=== PATIENT | female | born 1990 | race Caucasian/White ===

== ENCOUNTER 2017-09-21 04:15 | Inpatient (IN) ==
[2017-09-21] MEDS ORDERED: 0.9 % Sodium Chloride 1,000 ML IVC ONE (04:31)
[2017-09-21] MEDS ORDERED: Ondansetron 4 MG/2 ML VIAL IVP ONE (04:31)
[2017-09-21] MEDS ORDERED: *HR* LORazepam 2 MG/ML VIAL IVP ONE ×2 (04:32→05:06)
[2017-09-21 04:39] LABS: Bilirubin,Urine Negative (Negative); Blood,Urine Moderate (Negative); Clarity,Urine Cloudy (Clear); Color,Urine Yellow (Yellow); Glucose,Urine (UA) Normal (Normal); Ketones,Urine Negative (Negative); Leukocyte Esterase,Urine Negative (Negative); Nitrite,Urine Negative (Negative); PH,Urine 6.5 pH Units (5.0-8.0); Protein,Urine 30 mg/dL (Neg-Trace); Specific Gravity,Urine 1.015 (1.010-1.025); Urobilinogen,Urine Normal (Normal)
[2017-09-21 04:40] LABS: Basophils % 0.4 %; Eosinophils # 0.3 K/mcL (0.0-0.6); Eosinophils % 3.4 %; Hematocrit 38.6 % (35.3-44.9); Hemoglobin 13.1 g/dL (11.5-15.4); Immature Granulocytes % 0.1 % (0-4); Lymphocytes # 4.1 K/mcL (0.6-4.6); Lymphocytes % 49.3 %; Mean Corpuscular HGB Conc 33.9 g/dL (31.6-35.5); Mean Corpuscular Hemoglobin 29.9 pg (28.0-33.3); Mean Corpuscular Volume 88.1 fL (83.0-100.0); Mean Platelet Volume 8.8 fL (9.4-12.4); Monocytes # 0.6 K/mcL (0.0-1.3); Monocytes % 7.3 %; Neutrophils # 3.3 K/mcL (1.6-8.9); Platelet Count 239 K/mcL (140-400); Red Blood Count 4.38 M/mcL (3.82-4.97); Red Cell Distribution Width 11.9 % (11.5-14.5); Segmented Neutrophils % 39.5 %
[2017-09-21 04:42] LABS: Bacteria,Urine Moderate per hpf (None-Few); Hyaline Casts,Urine None Seen per lpf (None-Few); Squamous Epithelial Cell,Urine Many per lpf (None-Few)
[2017-09-21 04:50] LABS: Ethanol 394 mg/dL (0-10)
--- NOTE | 2017-09-21 05:00 | Emergency Department Note ---
Disposition Clinical Impression: Alcohol abuse Nausea & vomiting Qualifiers: Vomiting type: unspecified Vomiting Intractability: unspecified Qualified Code( s): R11.2 - Nausea with vomiting, unspecified Disposition: Admitted As Inpatient Condition: Fair Time of Disposition: 06:06 Nausea/Vomiting/Diarrhea HPI - General Chief complaint: ED Nausea/Vomiting/Diarrhea Stated complaint: N/V Time Seen by Provider: 09/21/17 04:29 Source: patient, EMS Limitations: no limitations Nursing Notes Reviewed: Yes Vital Signs Reviewed: Yes - History of Present Illness HPI Narrative: 19-year-old female presented to the emergency department complaining of nausea and vomiting she is a chronic alcoholic since she has been drinking for approximately 2 years she went through detox approximately 2 months ago was clean for 1 month and then one month ago decided to start drinking. Says she has been drinking every day where she does at least 1 pint of vodka. Per day. She said that she does want to get clean again. Her last drink was approximately 4 hours prior to arrival she said she is scared she is to start going through withdrawals. She does have extreme anxiety. She has been vomiting for the last 2 days she has been vomiting blood that is about 2 ounces per time. She is complaining of nausea and vomiting. She is not complaining of any abdominal pain. Patient is having no other symptoms including headache, blurry vision, neck pain, fevers or chills, chest pain, shortness of breath, back pain, abdominal pain, changes in bowel movements or pain with urination or generalized weakness. Patient does have suicidal ideations 2 days ago where she did try and slow her wrists. There is no active bleeding at this time per just having homicidal ideations. - Related Data Previous Rx's Medication Instructions Recorded Ibuprofen [Motrin] 600 mg PO Q6HR PRN #40 tab 01/25/16 Oxycodone HCl/Acetaminophen 1 each PO Q4H #20 tablet 01/25/16 [Percocet 5-325 mg Tablet] LORazepam [Ativan] 1 - 2 mg PO QID #14 tablet 10/29/16 Ondansetron ODT [Zofran ODT] 4 mg SL Q8HR #14 tab.rapdis 10/29/16 Allergies Allergy/AdvReac Type Severity Reaction Status Date / Time No Known Allergies Allergy Verified 09/21/17 04:45 Review of Systems: 10 point review of systems done and negative unless otherwise stated in history of present illness. All systems ED: reviewed and negative except as stated. Review of Systems: As Per HPI Past Medical History - Past Medical History Attestation: Yes The following information was validated with the patient. Source: patient Medical history: Reports: no medical history Surgical history: Reports: no surgical history Psychiatric history: Reports: anxiety, depression [employer] history: Reports: other - Social History Smoking Status: Current every day smoker Smokeless Tobacco Status: No Alcohol use: Reports: heavy, recent Drug use: Reports: none Physical Exam - General Limitations: no limitations General appearance: alert - Head Head exam: atraumatic, normocephalic, normal inspection - Eye Eye exam: Present: normal appearance, PERRL, EOMI - ENT ENT exam: normal exam, normal oropharynx, mucous membranes moist - Neck Neck exam: Present: normal inspection, full ROM, trachea midline - Chest Chest inspection: Present: normal inspection, symmetric chest wall rise - Respiratory Respiratory exam: Present: normal lung sounds bilaterally - Cardiovascular Cardiovascular exam: Present: regular rate, normal rhythm, normal heart sounds - Abdominal Exam Abdominal exam: Present: soft, Non-Tender. Absent: tenderness, distention, guarding, rebound, rigidity - Extremities Exam Extremities exam: Present: normal inspection, full ROM. Absent: tenderness, pedal edema - Expanded Upper Extremity Exam Forearm/Wrist exam: Present: normal inspection, full ROM, other (Noticeable slits on her left wrist where she did try to cut herself. No current active bleeding.) - Expanded Lower Extremity Exam Hip/Pelvis exam: Present: normal inspection, full ROM Neurovascular/Tendon exam: Absent: motor deficit, sensory deficit, tendon deficit - Back Exam Back exam: Present: normal inspection, full ROM. Absent: tenderness, CVA tenderness (R), CVA tenderness (L) - Neurological Exam Neurological exam: Present: alert, oriented X3 - Skin Skin exam: Present: warm, dry, intact, normal color Course Course Narrative: 27-year-old female presenting to the emergency department complaining of a call withdrawals. She also had suicidal ideations so we will do the psych medical clearance as well. She last drink 4 hours ago she she is probably not withdrawing at this time. But she is very anxious we will give her Ativan she will see hydrated we will give her IV fluids as well as Zofran for her nausea. We will order basic labs including CBC, CMP, lipase, urine, urine , urine drug screen, acetaminophen, salicylates, ethanol. Most likely disposition will be admission with a psych consultation Vital Signs Temperature 98.1 F 09/21/17 04:17 Pulse Rate 110 09/21/17 04:17 Respiratory Rate 16 09/21/17 04:17 Blood Pressure 146/101 09/21/17 04:17 O2 Sat by Pulse Oximetry 99 09/21/17 04:17 Temperature 98.0 F 09/21/17 06:09 Pulse Rate 102 09/21/17 06:09 Respiratory Rate 19 09/21/17 06:09 Blood Pressure 123/70 09/21/17 06:09 O2 Sat by Pulse Oximetry 99 09/21/17 06:09 Oxygen Delivery Oxygen Delivery Room Air Nausea/Vomiting/Diarrhea - MDM Narrative Medical decision making narrative: 27-year-old male presented to the emergency department with nausea vomiting she is a chronic alcoholic history. Last drink was 4 hours prior to her arrival. We did give her a full milligram of Ativan. This did help with some of her anxiety. Did give her 1 L of fluids. Labs did show that she had an alcohol level of nearly 400 or labs came back normal. Urinalysis also was normal and was a dirty catch most likely not urinary tract infection. We will will not treat at this time. Patient does want to stop using alcohol she is on a weight loss in a detox center up in [place] but says she cannot make it until then. She had. Sodium of bloody vomit. Did a chest x-ray had no acute abdomen malaise. Her hemoglobin was normal. This was likely just Natalya-López tears. Patient also probably has chronic gastric ulcers. Due patient most likely having to go through withdrawals admission was necessary for this I admitted to the hospitalist service talk to Dr. Martinez who agreed to admit the patient to their service. He did ask that we put the patient in telemetry also because she had the suicidal ideations and attempts he recommended suicide precautions as well as having a sitter these were all put in. I did put in the [facility] protocol. Patient is admitted in stable condition. Psych consultation was put in for when patient miranda up Chest X-Ray 09/21/17 04:30 IMPRESSION: Negative portable chest. D/ / Luis Faulkner MD / Luis Faulkner MD Interpreting Provider: Luis Faulkner MD - Medical Records Medical records reviewed: Yes I reviewed the patient's medical records. - Lab Data Lab results reviewed: Yes I reviewed the patient's lab results. Result diagrams: 09/21/17 04:28 09/21/17 04:28 Lab Results 09/21/17 09/21/17 09/21/17 Range/Units 04:27 04:27 04:27 WBC (4.3-11.1) K/mcL RBC (3.82-4.97) M/mcL Hgb (11.5-15.4) g/dL Hct (35.3-44.9) % MCV (83.0-100.0) fL MCH (28.0-33.3) pg MCHC (31.6-35.5) g/dL RDW (11.5-14.5) % Plt Count (140-400) K/mcL MPV (9.4-12.4) fL Immature Gran % (0-4) % Seg Neutrophils % % Lymphocytes % % Monocytes % % Eosinophils % % Basophils % % Neutrophils # (1.6-8.9) K/mcL Lymphocytes # (0.6-4.6) K/mcL Monocytes # (0.0-1.3) K/mcL Eosinophils # (0.0-0.6) K/mcL Basophils # (0.0-0.2) K/mcL Sodium (136-145) mEq/L Potassium (3.5-5.1) mEq/L Chloride (98-107) mEq/L Carbon Dioxide (23-29) mEq/L BUN (6-20) mg/dL Creatinine (0.60-1.20) mg/dL Est GFR ( Amer) (> 60) Est GFR (Non-Af Amer) (> 60) BUN/Creatinine Ratio (6-26) Glucose (70-105) mg/dL Calculated Osmolality (280-300) Calcium (8.6-10.3) mg/dL Total Bilirubin (0.3-1.0) mg/dL AST (13-39) Units/L ALT (7-52) Units/L Alkaline Phosphatase (34-104) Units/L Serum Total Protein (6.4-8.9) g/dL Albumin (3.5-5.7) g/dL Globulin (2.4-3.5) g/dL Albumin/Globulin Ratio (1.1-2.2) Lipase (11-82) Units/L Urine Color Yellow (Yellow) Urine Clarity Cloudy A (Clear) Urine pH 6.5 (5.0-8.0) pH Units Ur Specific Anthony 1.015 (1.010-1.025) Urine Protein 30 H (Neg-Trace) mg/dL Urine Glucose (UA) Normal (Normal) mg/dL Urine Ketones Negative (Negative) mg/dL Urine Blood Moderate H (Negative) Urine Nitrite Negative (Negative) Urine Bilirubin Negative (Negative) Urine Urobilinogen Normal (Normal) mg/dL Ur Leukocyte Esterase Negative (Negative) Urine Microscopic RBC 3-5 H (0-3) per hpf Urine Microscopic WBC 5-15 H (0-3) per hpf Ur Squamous Epith Cells Many H (None-Few) per lpf Urine Bacteria Moderate H (None-Few) per hpf Hyaline Casts None Seen (None-Few) per lpf Ur Culture Indicated? NO (NO) Urine Test Negative (Negative) Salicylates (15.0-30.0) mg/dL Urine Opiates Screen Negative (Wuslcz=373) ng/mL Acetaminophen (10-30) mcg/mL Ur Barbiturates Screen Negative (Fbgiqs=569) ng/mL Ur Phencyclidine Scrn Negative (Cutoff=25) ng/mL Ur Amphetamines Screen Negative (Zslhhd=5404) ng/mL U Benzodiazepines Scrn Positive H (Lvnaoa=253) ng/mL Urine Cocaine Screen Negative (Cutoff= 300) ng/mL U Marijuana (THC) Screen Negative (Cutoff = 50) ng/mL Ethyl Alcohol (0-10) mg/dL 09/21/17 09/21/17 Range/Units 04:28 04:28 WBC 8.3 (4.3-11.1) K/mcL RBC 4.38 (3.82-4.97) M/mcL Hgb 13.1 (11.5-15.4) g/dL Hct 38.6 (35.3-44.9) % MCV 88.1 (83.0-100.0) fL MCH 29.9 (28.0-33.3) pg MCHC 33.9 (31.6-35.5) g/dL RDW 11.9 (11.5-14.5) % Plt Count 239 (140-400) K/mcL MPV 8.8 L (9.4-12.4) fL Immature Gran % 0.1 (0-4) % Seg Neutrophils % 39.5 % Lymphocytes % 49.3 % Monocytes % 7.3 % Eosinophils % 3.4 % Basophils % 0.4 % Neutrophils # 3.3 (1.6-8.9) K/mcL Lymphocytes # 4.1 (0.6-4.6) K/mcL Monocytes # 0.6 (0.0-1.3) K/mcL Eosinophils # 0.3 (0.0-0.6) K/mcL Basophils # 0.0 (0.0-0.2) K/mcL Sodium 142 (136-145) mEq/L Potassium 4.0 (3.5-5.1) mEq/L Chloride 103 (98-107) mEq/L Carbon Dioxide 30 H (23-29) mEq/L BUN 9 (6-20) mg/dL Creatinine 0.70 (0.60-1.20) mg/dL Est GFR ( Amer) > 60 (> 60) Est GFR (Non-Af Amer) > 60 (> 60) BUN/Creatinine Ratio 13 (6-26) Glucose 110 H (70-105) mg/dL Calculated Osmolality 293 (280-300) Calcium 9.2 (8.6-10.3) mg/dL Total Bilirubin 0.5 (0.3-1.0) mg/dL AST 25 (13-39) Units/L ALT 17 (7-52) Units/L Alkaline Phosphatase 50 (34-104) Units/L Serum Total Protein 7.9 (6.4-8.9) g/dL Albumin 4.8 (3.5-5.7) g/dL Globulin 3.1 (2.4-3.5) g/dL Albumin/Globulin Ratio 1.5 (1.1-2.2) Lipase 128 H (11-82) Units/L Urine Color (Yellow) Urine Clarity (Clear) Urine pH (5.0-8.0) pH Units Ur Specific Anthony (1.010-1.025) Urine Protein (Neg-Trace) mg/dL Urine Glucose (UA) (Normal) mg/dL Urine Ketones (Negative) mg/dL Urine Blood (Negative) Urine Nitrite (Negative) Urine Bilirubin (Negative) Urine Urobilinogen (Normal) mg/dL Ur Leukocyte Esterase (Negative) Urine Microscopic RBC (0-3) per hpf Urine Microscopic WBC (0-3) per hpf Ur Squamous Epith Cells (None-Few) per lpf Urine Bacteria (None-Few) per hpf Hyaline Casts (None-Few) per lpf Ur Culture Indicated? (NO) Urine Test (Negative) Salicylates < 5.0 L (15.0-30.0) mg/dL Urine Opiates Screen (Fxviyb=314) ng/mL Acetaminophen < 1.0 L (10-30) mcg/mL Ur Barbiturates Screen (Hisgwu=408) ng/mL Ur Phencyclidine Scrn (Cutoff=25) ng/mL Ur Amphetamines Screen (Agmxbt=3458) ng/mL U Benzodiazepines Scrn (Gtixfi=586) ng/mL Urine Cocaine Screen (Cutoff= 300) ng/mL U Marijuana (THC) Screen (Cutoff = 50) ng/mL Ethyl Alcohol 394 H (0-10) mg/dL - Radiology Data Radiology results reviewed: Yes I reviewed the patient's radiology results. Attestation Statement - Attestation Attestation: I, Jean Carlos Lawson MD, personally evaluated this patient and discussed their management with the resident physician. I reviewed the resident's note and agree with the documented findings, medical decision making, and plan of care. 27-year-old female who is alcoholic presents to the emergency department with a complaint of nausea and vomiting and epigastric abdominal pain for the past 2 days prior to arrival. Patient went through rehabilitation about 2 months ago. About 2 weeks ago she started back drinking heavily. Patient states that she wants to get off the alcohol. She feels very shaky and nervous and anxious. Severe burning pain in the epigastric area and some small amounts of bright red blood in her emesis. No fever. No dizziness or syncope. Patient also has some superficial lacerations to the flexor surface of both wrists. She states she did this 2 days ago. She denies suicidal ideation at present but states that she is on a waiting list to get back into rehabilitation but feels that she is at the point that she can no longer wait. On examination patient is a well-developed well-nourished female in no acute distress. She is alert and oriented 3. There is no cyanosis or diaphoresis. Strong odor of alcohol on breath but patient does not appear overly intoxicated. Breath sounds are clear and equal bilaterally. Heart regular with a mild tachycardia. Abdomen soft with normal bowel sounds. Moderate midepigastric tenderness. Labs reviewed. Hemoglobin normal. Lipase 128. EtOH 394. Chest x-ray negative. The hospitalist, Dr. Martinez, was consulted and accepted admission of the patient.
[2017-09-21 05:02] LABS: Acetaminophen < 1.0 mcg/mL (10-30); Alanine Aminotransferase 17 Units/L (7-52); Albumin 4.8 g/dL (3.5-5.7); Albumin/Globulin Ratio 1.5 (1.1-2.2); Alkaline Phosphatase 50 Units/L (34-104); Aspartate Amino Transferase 25 Units/L (13-39); BUN/Creatinine Ratio 13 (6-26); Bilirubin,Total 0.5 mg/dL (0.3-1.0); Blood Urea Nitrogen 9 mg/dL (6-20); Calcium 9.2 mg/dL (8.6-10.3); Carbon Dioxide 30 mEq/L (23-29); Chloride 103 mEq/L (98-107); Globulin 3.1 g/dL (2.4-3.5); Glucose 110 mg/dL (70-105); Lipase 128 Units/L (11-82); Osmolality,Calculated 293 (280-300); Salicylate < 5.0 mg/dL (15.0-30.0); Sodium 142 mEq/L (136-145); Total Protein 7.9 g/dL (6.4-8.9); eGFR For African Americans > 60 (> 60); eGFR For Non-African Americans > 60 (> 60)
[2017-09-21 05:05] LABS: Amphetamine Screen,Urine Negative ng/mL (Cutoff=1000); Barbiturate Screen,Urine Negative ng/mL (Cutoff=200); Benzodiazepines Screen,Urine Positive ng/mL (Cutoff=200); Cannabinoid Screen,Urine Negative ng/mL (Cutoff = 50); Cocaine Screen,Urine Negative ng/mL (Cutoff= 300); Opiate Screen,Urine Negative ng/mL (Cutoff=300); Phencyclidine Screen,Urine Negative ng/mL (Cutoff=25)
--- NOTE | 2017-09-21 08:14 | Internal Med History&Physical ---
Date of Encounter: 09/21/17 Time of Encounter: 08:14 Assessment and Plan (1) Upper GI bleed Current visit: Yes Status: Acute She reports vomiting bright red blood. Upper GI bleed likely secondary to Natalya-López tear. Nothing by mouth except sips and chips. IV fluids. IV Protonix. Trend hemoglobin and hematocrit every 6 hours. (2) Alcohol intoxication Current visit: Yes Status: Acute IV fluids. Zofran for nausea. IV thiamine B12 and folate. Qualifiers: Complication of substance-induced condition: uncomplicated Qualified Code(s ): F10.920 - Alcohol use, unspecified with intoxication, uncomplicated (3) Suicidal ideation Current visit: Yes Status: Acute Suicidal precautions. Direct continuous safety observation. Psychiatry consult when she miranda up. (4) DVT prophylaxis Current visit: Yes Status: Acute Encourage ambulation. (5) Alcohol abuse Current visit: Yes Status: Acute Social service consult for detox placement. [facility] protocol. (6) Nausea & vomiting Current visit: Yes Status: Acute IV Zofran. Nothing by mouth except chips. Qualifiers: Vomiting type: unspecified Vomiting Intractability: non-intractable Qualified Code(s): R11.2 - Nausea with vomiting, unspecified (7) Tobacco abuse Current visit: Yes Status: Acute I advised smoking cessation. We will provide nicotine replacement therapy. Internal Medicine - H&P: HPI Chief complaint: Nausea and vomiting Admitted From: Emergency Dept Plans for Post Hospital Care: Transfer Inp Rehab Fac History of present illness: Ms. Dewitt is a 27 year old female with past medical history significant for alcohol abuse presented to the hospital for evaluation of nausea and vomiting. She has a history of alcohol abuse and has been and alcohol rehabilitation 2 months ago, has been clean since up until 2 weeks ago when she started drinking 1 pint of whiskey daily. For the last several days she has been experiencing burning epigastric pain, severe, worse with vomiting, associated with nausea. She reported vomiting of blood-streaked stomach contents. In the emergency department alcohol level was 394. She was agitated. She was given IV Ativan and referred for admission. It was noted that she had superficial excoriation of the both wrists and her ED documentation she admitted to suicidal ideation. Currently she denies suicidal ideation. Family history: Negative for premature coronary artery disease and familial cancer in both parents. Social history: She smokes one pack of cigarettes a day, drinks 1 pint of whiskey daily, denies recreational drug use Past Med Surg Social Fam HX - Past Medical History Medical history: no medical history Psychiatric history: anxiety, depression - Past Surgical History Surgical History: no surgical history - Social History Smoking Status: Current every day smoker Packs per day: 1/2 Smokeless Tobacco Status: No Alcohol use: heavy, recent Drug use: none Internal Medicine - H&P: Meds Ibuprofen [Motrin] 600 mg PO Q6HR PRN #40 tab 01/25/16 [Rx] Oxycodone HCl/Acetaminophen [Percocet 5-325 mg Tablet] 1 each PO Q4H #20 tablet 01/25/16 [Rx] LORazepam [Ativan] 1 - 2 mg PO QID #14 tablet 10/29/16 [Rx] Ondansetron ODT [Zofran ODT] 4 mg SL Q8HR #14 tab.rapdis 10/29/16 [Rx] 3 Allergy/AdvReac Type Severity Reaction Status Date / Time No Known Allergies Allergy Verified 09/21/17 04:45 All Systems PM: A 10-system review of systems was performed and is negative for pertinent findings except as documented above in the HPI. - Constitutional Vitals: Temp Pulse Resp BP Pulse Ox 98.0 F 102 19 123/70 99 09/21/17 06:09 09/21/17 06:09 09/21/17 06:09 09/21/17 06:09 09/21/17 06:09 General appearance: Present: A&O X 3, no acute distress - Eye Eye exam: Present: PERRL, conjuntiva pink, sclera anicteric Pupils: Present: PERRL - Respiratory Respiratory exam: Present: CTAB. Absent: accessory muscle use, rales, rhonchi, wheezes - Cardiovascular Cardiovascular exam: Present: RRR, +S1, +S2. Absent: diastolic murmur, gallop, rubs, systolic murmur - GI/Abdominal GI/Abdominal exam: Present: normal bowel sounds, soft, no peritoneal signs. Absent: distended, tenderness - Extremities Exam Extremities exam: Present: warm, radial pulses palpable and symmetrical. Absent : calf tenderness, cyanotic, pedal edema - Neurological Exam Neurological exam: Present: CN II-XII intact, oriented X3, no focal deficits. Absent: pronater drift, facial droop, speech deficit - Skin Skin exam: Present: dry, intact Internal Med - H&P Results - Labs CBC & Chem 7: 09/21/17 04:28 09/21/17 04:28
[2017-09-21] MEDS ORDERED: Naloxone 0.4 MG/ML INJ IVP PRN (08:44)
[2017-09-21] MEDS: 0.9 % Sodium Chloride 1,000 ML IVC SCH ×2 (09:30→21:23)
[2017-09-21] MEDS: Nicotine 21 MG PATCH.TD24 TD SCH (09:32)
[2017-09-21] MEDS: Pantoprazole 40 MG VIAL IVP SCH ×2 (09:32→17:50)
[2017-09-21] MEDS: *HR* LORazepam 2 MG/ML VIAL IVP PRN ×3 (09:34→21:23)
[2017-09-21] MEDS: Ondansetron 4 MG/2 ML VIAL IVP PRN ×2 (09:34→22:28)
--- NOTE | 2017-09-21 11:31 | Consult Note ---
Date of Encounter: 09/21/17 Time of Encounter: 11:28 Assessment & Recommendation (1) Alcohol intoxication Current visit: Yes Status: Acute Assessment & Recommendation: Continue detox protocol. Will need to assess when client more alert and cooperative. Unable to get any useful information from her today. Will attempt to see her again tomorrow. Qualifiers: Complication of substance-induced condition: uncomplicated Qualified Code(s ): F10.920 - Alcohol use, unspecified with intoxication, uncomplicated History of Present Illness Requesting Physician: Ramin Ewing MD Reason for consult: suicidal ideation History of present illness: Ms. Dewitt is a 27 year old female who was admitted with acute alcohol intoxication and possible GI bleed. Discovered to have superficial lacerations to wrists that client indicated was a suicide attempt a couple of days ago. On eval today client is very groggy. Unwilling or unable to sit up and talk. Kept closing eyes and falling asleep. Slurring words. Mumbled she was ok but could not get any more history out of her. Sitter present and indicated client has been up and moving around but that she just fell asleep approx 30-40 minutes ago. Will need to reassess at a later time as client was unable to give me any useful information. CC: Ramin Ewing MD Past Med Surg Social Fam HX - Past Medical History Medical history: no medical history - Past Psychiatric History Psychiatric history: Reports: depression, prior suicide attempt Family psychiatric history: Unknown Family History of Suicide: Unknown - Past Surgical History Surgical History: no surgical history - Social History Smoking Status: Current every day smoker Smokeless Tobacco Status: No Alcohol use: heavy, recent Drug use: none Medications & Allergies Ibuprofen [Motrin] 600 mg PO Q6HR PRN #40 tab 01/25/16 [Rx] Oxycodone HCl/Acetaminophen [Percocet 5-325 mg Tablet] 1 each PO Q4H #20 tablet 01/25/16 [Rx] LORazepam [Ativan] 1 - 2 mg PO QID #14 tablet 10/29/16 [Rx] Ondansetron ODT [Zofran ODT] 4 mg SL Q8HR #14 tab.rapdis 10/29/16 [Rx] 3 Allergy/AdvReac Type Severity Reaction Status Date / Time No Known Allergies Allergy Verified 09/21/17 04:45 Review of Systems Constitutional: Denies: fever, chills, weakness, weight change Eyes: Denies: eye pain, vision change Ears, Nose, Throat: Denies: ear pain, throat pain, dental pain, hearing loss, congestion Cardiovascular: Denies: chest pain, palpitations, dyspnea on exertion Respiratory: Denies: cough, dyspnea, wheezes Gastrointestinal: Denies: abdominal pain, nausea, vomiting, diarrhea, constipation Genitourinary male: Denies: urgency, dysuria, frequency, genital lesions Genitourinary female: Denies: urgency, dysuria, frequency, abnormal menses, dyspareunia Musculoskeletal: Denies: joint swelling, joint pain Integumentary: Denies: rash, lesions, pruritus Neurological: Denies: headache, weakness, numbness, memory loss Endocrine: Denies: fatigue, heat or cold intolerance Hematologic/Lymphatic: Denies: easy bruising, lymphadenopathy Allergic/Immunologic: Denies: urticaria, itchy eyes Mental Status Exam Patient orientation: Yes Other Level of alertness: Sedated Patient appearance: Disheveled Behavior: uncooperative Psychomotor activity: Normal Eye contact: No Eye Contact Mood description: Other Affect description: other Speech pattern: Slurred Speech volume: Soft/Quiet Thought process: Linear Thought content: Yes Suicidal ideation Perceptual disturbances: No Auditory hallucinations, No Visual hallucinations Attention span: Unable to Focus, Unable to Sustain Attention Memory description: Immediate Impaired, Recent Impaired, Remote Intact Patient reliability: Not Reliable Historian Intelligence estimate: Average Judgment: Poor Insight: Minimal Results - Vital Signs Vital signs: Temp Pulse Resp BP Pulse Ox 98.0 F 102 19 123/70 99 09/21/17 06:09 09/21/17 06:09 09/21/17 06:09 09/21/17 06:09 09/21/17 06:09 - Labs Labs: Laboratory Last Values WBC 8.3 K/mcL (4.3-11.1) 09/21/17 04:28 RBC 4.38 M/mcL (3.82-4.97) 09/21/17 04:28 Hgb 11.0 g/dL (11.5-15.4) L D 09/21/17 10:08 Hct 32.0 % (35.3-44.9) L 09/21/17 10:08 MCV 88.1 fL (83.0-100.0) 09/21/17 04:28 MCH 29.9 pg (28.0-33.3) 09/21/17 04:28 MCHC 33.9 g/dL (31.6-35.5) 09/21/17 04:28 RDW 11.9 % (11.5-14.5) 09/21/17 04:28 Plt Count 239 K/mcL (140-400) 09/21/17 04:28 MPV 8.8 fL (9.4-12.4) L 09/21/17 04:28 Immature Gran % 0.1 % (0-4) 09/21/17 04:28 Seg Neutrophils % 39.5 % 09/21/17 04:28 Lymphocytes % 49.3 % 09/21/17 04:28 Monocytes % 7.3 % 09/21/17 04:28 Eosinophils % 3.4 % 09/21/17 04:28 Basophils % 0.4 % 09/21/17 04:28 Neutrophils # 3.3 K/mcL (1.6-8.9) 09/21/17 04:28 Lymphocytes # 4.1 K/mcL (0.6-4.6) 09/21/17 04:28 Monocytes # 0.6 K/mcL (0.0-1.3) 09/21/17 04:28 Eosinophils # 0.3 K/mcL (0.0-0.6) 09/21/17 04:28 Basophils # 0.0 K/mcL (0.0-0.2) 09/21/17 04:28 Sodium 142 mEq/L (136-145) 09/21/17 04:28 Potassium 4.0 mEq/L (3.5-5.1) 09/21/17 04:28 Chloride 103 mEq/L (98-107) 09/21/17 04:28 Carbon Dioxide 30 mEq/L (23-29) H 09/21/17 04:28 BUN 9 mg/dL (6-20) 09/21/17 04:28 Creatinine 0.70 mg/dL (0.60-1.20) 09/21/17 04:28 Est GFR ( Amer) > 60 (> 60) 09/21/17 04:28 Est GFR (Non-Af Amer) > 60 (> 60) 09/21/17 04:28 BUN/Creatinine Ratio 13 (6-26) 09/21/17 04:28 Glucose 110 mg/dL (70-105) H 09/21/17 04:28 Calculated Osmolality 293 (280-300) 09/21/17 04:28 Calcium 9.2 mg/dL (8.6-10.3) 09/21/17 04:28 Total Bilirubin 0.5 mg/dL (0.3-1.0) 09/21/17 04:28 AST 25 Units/L (13-39) 09/21/17 04:28 ALT 17 Units/L (7-52) 09/21/17 04:28 Alkaline Phosphatase 50 Units/L (34-104) 09/21/17 04:28 Serum Total Protein 7.9 g/dL (6.4-8.9) 09/21/17 04:28 Albumin 4.8 g/dL (3.5-5.7) 09/21/17 04:28 Globulin 3.1 g/dL (2.4-3.5) 09/21/17 04:28 Albumin/Globulin Ratio 1.5 (1.1-2.2) 09/21/17 04:28 Lipase 128 Units/L (11-82) H 09/21/17 04:28 Urine Color Yellow (Yellow) 09/21/17 04:27 Urine Clarity Cloudy (Clear) A 09/21/17 04:27 Urine pH 6.5 pH Units (5.0-8.0) 09/21/17 04:27 Ur Specific [place] 1.015 (1.010-1.025) 09/21/17 04:27 Urine Protein 30 mg/dL (Neg-Trace) H 09/21/17 04:27 Urine Glucose (UA) Normal mg/dL (Normal) 09/21/17 04:27 Urine Ketones Negative mg/dL (Negative) 09/21/17 04:27 Urine Blood Moderate (Negative) H 09/21/17 04:27 Urine Nitrite Negative (Negative) 09/21/17 04:27 Urine Bilirubin Negative (Negative) 09/21/17 04:27 Urine Urobilinogen Normal mg/dL (Normal) 09/21/17 04:27 Ur Leukocyte Esterase Negative (Negative) 09/21/17 04:27 Urine Microscopic RBC 3-5 per hpf (0-3) H 09/21/17 04:27 Urine Microscopic WBC 5-15 per hpf (0-3) H 09/21/17 04:27 Ur Squamous Epith Cells Many per lpf (None-Few) H 09/21/17 04:27 Urine Bacteria Moderate per hpf (None-Few) H 09/21/17 04:27 Hyaline Casts None Seen per lpf (None-Few) 09/21/17 04:27 Ur Culture Indicated? NO (NO) 09/21/17 04:27 Urine Test Negative (Negative) 09/21/17 04:27 Salicylates < 5.0 mg/dL (15.0-30.0) L 09/21/17 04:28 Urine Opiates Screen Negative ng/mL (Zccbjw=184) 09/21/17 04:27 Acetaminophen < 1.0 mcg/mL (10-30) L 09/21/17 04:28 Ur Barbiturates Screen Negative ng/mL (Nmkldm=177) 09/21/17 04:27 Ur Phencyclidine Scrn Negative ng/mL (Cutoff=25) 09/21/17 04:27 Ur Amphetamines Screen Negative ng/mL (Fvpgcl=6581) 09/21/17 04:27 U Benzodiazepines Scrn Positive ng/mL (Umehha=255) H 09/21/17 04:27 Urine Cocaine Screen Negative ng/mL (Cutoff= 300) 09/21/17 04:27 U Marijuana (THC) Screen Negative ng/mL (Cutoff = 50) 09/21/17 04:27 Ethyl Alcohol 394 mg/dL (0-10) H 09/21/17 04:28 Consult Discharge Plan - Plan Referrals: NONE,PCP [Primary Care Provider] -
[2017-09-21] MEDS: *HR* Promethazine 25 MG/ML VIAL IVP PRN (14:54)
[2017-09-21] MEDS: *HR* Morphine 2 MG/ML SYRINGE IVP PRN ×2 (14:54→18:48)
[2017-09-21 15:23] LABS: Hematocrit 32.2 % (35.3-44.9)
[2017-09-21] MEDS: Thiamine (B-1) 100 MG, Folic Acid 1 MG, MVI, adult with vitamin K 10 ML in 0.9 % Sodi... IVPB SCH (17:50)
[2017-09-21 22:56] LABS: Hemoglobin 9.8 g/dL (11.5-15.4)
[2017-09-21] MEDS ORDERED: *HR* Morphine 2 MG/ML SYRINGE IVP ONE (23:04)
[2017-09-22] MEDS ORDERED: *HR* LORazepam 2 MG/ML VIAL IVP ONE (00:07)
[2017-09-22] MEDS: *HR* Promethazine 25 MG/ML VIAL IVP PRN ×4 (00:23→21:40)
[2017-09-22] MEDS ORDERED: *HR* LORazepam 2 MG/ML VIAL IVP PRN (00:56)
[2017-09-22] MEDS: *HR* LORazepam 2 MG/ML VIAL IVP PRN ×9 (02:24→21:34)
[2017-09-22] MEDS: *HR* Morphine 2 MG/ML SYRINGE IVP PRN ×3 (03:14→21:40)
[2017-09-22 05:51] LABS: Basophils % 0.1 %; Eosinophils # 0.1 K/mcL (0.0-0.6); Eosinophils % 1.7 %; Hemoglobin 9.7 g/dL (11.5-15.4); Immature Granulocytes % 0.3 % (0-4); Lymphocytes # 1.9 K/mcL (0.6-4.6); Lymphocytes % 24.1 %; Mean Corpuscular HGB Conc 34.6 g/dL (31.6-35.5); Mean Corpuscular Hemoglobin 30.2 pg (28.0-33.3); Mean Corpuscular Volume 87.2 fL (83.0-100.0); Mean Platelet Volume 9.5 fL (9.4-12.4); Monocytes # 0.3 K/mcL (0.0-1.3); Monocytes % 3.9 %; Neutrophils # 5.4 K/mcL (1.6-8.9); Platelet Count 130 K/mcL (140-400); Red Blood Count 3.21 M/mcL (3.82-4.97); Red Cell Distribution Width 11.9 % (11.5-14.5); Segmented Neutrophils % 69.9 %
[2017-09-22 06:05] LABS: BUN/Creatinine Ratio 10 (6-26); Blood Urea Nitrogen 6 mg/dL (6-20); Calcium 6.7 mg/dL (8.6-10.3); Carbon Dioxide 25 mEq/L (23-29); Chloride 104 mEq/L (98-107); Glucose 74 mg/dL (70-105); Magnesium 1.1 mg/dL (1.6-2.6); Osmolality,Calculated 280 (280-300); Potassium 3.1 mEq/L (3.5-5.1); Sodium 137 mEq/L (136-145); eGFR For African Americans > 60 (> 60); eGFR For Non-African Americans > 60 (> 60)
[2017-09-22] MEDS: Pantoprazole 40 MG VIAL IVP SCH ×2 (06:38→18:55)
[2017-09-22] MEDS: Nicotine 21 MG PATCH.TD24 TD SCH (08:56)
[2017-09-22] MEDS: Ondansetron 4 MG/2 ML VIAL IVP PRN (08:57)
[2017-09-22] MEDS: Acetaminophen 325 MG TABLET PO PRN (11:09)
[2017-09-22] MEDS ORDERED: Sennosides/Docusate Sodium TABLET PO PRN (11:40)
--- NOTE | 2017-09-22 13:40 | Consult Note ---
Date of Encounter: 09/22/17 Time of Encounter: 13:33 Assessment & Recommendation (1) Alcohol intoxication Current visit: Yes Status: Acute Assessment & Recommendation: Recommend client go directly to a residential rehab once stable. Client responds well to Lexapro. This medication likely won't be effective for depression while client is still acutely withdrawing but it can be added back once acute withdrawals are over. Client denies SI and wants rehab. Father present and agrees that client is not a suicide risk. Do not see a reason for inpatient mental health treatment at this time. Recommend follow-up with a counselor as planned. Qualifiers: Complication of substance-induced condition: uncomplicated Qualified Code(s ): F10.920 - Alcohol use, unspecified with intoxication, uncomplicated History of Present Illness Requesting Physician: Ramin Ewing MD Reason for consult: suicidal ideation History of present illness: Ms. Dewitt is a 27 year old female who is currently being treated for alcohol withdrawal on a medical floor. Client states she has been drinking a pint of whiskey daily. No history of seizures or psychosis but has experienced nausea and shakes from alcohol withdrawal in the past. Has been to [facility] in [place] before and was trying to get in again. Thought she was on the wait list and when she called staff told her she was not on the list and she had to start over from the bottom. Wanting help to get off of alcohol. Superficially scratched wrists while intoxicated a few days ago. Denies this was a suicide attempt. Denies she has ever been suicidal. Takes Lexapro for depression. States this medication normally works well for her when she is not binge drinking. PCP prescribes medication. Not currently linked with a Psychiatrist but client believes PCP is comfortable managing SSRI. Client is intending to start counseling but needs inpatient rehab first. Physically healthy. Denies substance abuse other than alcohol. Father present throughout interview and he verified everything client said. He denied having any safety concerns. Denied thinking his daughter is a suicide risk. Wants to see her get alcohol treatment. CC: Ramin Ewing MD Past Med Surg Social Fam HX - Past Medical History Medical history: no medical history - Past Psychiatric History Psychiatric history: Reports: depression Family psychiatric history: Unknown Family History of Suicide: Unknown - Past Surgical History Surgical History: no surgical history - Social History Smoking Status: Current every day smoker Smokeless Tobacco Status: No Alcohol use: heavy, recent Drug use: none Medications & Allergies chlordiazePOXIDE HCl [Chlordiazepoxide HCl] 10 mg PO TID PRN 09/21/17 [History] 3 Allergy/AdvReac Type Severity Reaction Status Date / Time No Known Allergies Allergy Verified 09/21/17 04:45 Review of Systems Constitutional: Denies: fever, chills, weakness, weight change Eyes: Denies: eye pain, vision change Ears, Nose, Throat: Denies: ear pain, throat pain, dental pain, hearing loss, congestion Cardiovascular: Denies: chest pain, palpitations, dyspnea on exertion Respiratory: Denies: cough, dyspnea, wheezes Gastrointestinal: Denies: abdominal pain, nausea, vomiting, diarrhea, constipation Genitourinary male: Denies: urgency, dysuria, frequency, genital lesions Genitourinary female: Denies: urgency, dysuria, frequency, abnormal menses, dyspareunia Musculoskeletal: Denies: joint swelling, joint pain Integumentary: Denies: rash, lesions, pruritus Neurological: Reports: other Psychiatric: Reports: depression Endocrine: Denies: fatigue, heat or cold intolerance Hematologic/Lymphatic: Denies: easy bruising, lymphadenopathy Allergic/Immunologic: Denies: urticaria, itchy eyes Mental Status Exam Patient orientation: Yes Person, Yes Time, Yes Place Level of alertness: Alert Patient appearance: Appropriate, Well Groomed Behavior: cooperative Psychomotor activity: Increased Eye contact: Maintains Eye Contact Mood description: Depressed Affect description: full range Speech pattern: Normal rate, Normal rhythm, Normal tone Speech volume: Normal Thought process: Linear, Goal Oriented Thought content: No Suicidal ideation, No Homicidal ideation, No Overt delusions Perceptual disturbances: No Auditory hallucinations, No Visual hallucinations Attention span: Capable of Focused Attention Memory description: Grossly Intact Patient reliability: Reliable Historian Intelligence estimate: Average Judgment: Fair Insight: Partial Results - Vital Signs Vital signs: Temp Pulse Resp BP Pulse Ox 98.3 F 100 16 121/83 96 09/22/17 12:17 09/22/17 12:17 09/22/17 12:17 09/22/17 12:17 09/22/17 12:17 - Labs Labs: Laboratory Last Values WBC 7.7 K/mcL (4.3-11.1) 09/22/17 05:12 RBC 3.21 M/mcL (3.82-4.97) L 09/22/17 05:12 Hgb 9.7 g/dL (11.5-15.4) L 09/22/17 05:12 Hct 28.0 % (35.3-44.9) L 09/22/17 05:12 MCV 87.2 fL (83.0-100.0) 09/22/17 05:12 MCH 30.2 pg (28.0-33.3) 09/22/17 05:12 MCHC 34.6 g/dL (31.6-35.5) 09/22/17 05:12 RDW 11.9 % (11.5-14.5) 09/22/17 05:12 Plt Count 130 K/mcL (140-400) L 09/22/17 05:12 MPV 9.5 fL (9.4-12.4) 09/22/17 05:12 Immature Gran % 0.3 % (0-4) 09/22/17 05:12 Seg Neutrophils % 69.9 % 09/22/17 05:12 Lymphocytes % 24.1 % 09/22/17 05:12 Monocytes % 3.9 % 09/22/17 05:12 Eosinophils % 1.7 % 09/22/17 05:12 Basophils % 0.1 % 09/22/17 05:12 Neutrophils # 5.4 K/mcL (1.6-8.9) 09/22/17 05:12 Lymphocytes # 1.9 K/mcL (0.6-4.6) 09/22/17 05:12 Monocytes # 0.3 K/mcL (0.0-1.3) 09/22/17 05:12 Eosinophils # 0.1 K/mcL (0.0-0.6) 09/22/17 05:12 Basophils # 0.0 K/mcL (0.0-0.2) 09/22/17 05:12 Sodium 137 mEq/L (136-145) 09/22/17 05:12 Potassium 3.1 mEq/L (3.5-5.1) L 09/22/17 05:12 Chloride 104 mEq/L (98-107) 09/22/17 05:12 Carbon Dioxide 25 mEq/L (23-29) 09/22/17 05:12 BUN 6 mg/dL (6-20) 09/22/17 05:12 Creatinine 0.62 mg/dL (0.60-1.20) 09/22/17 05:12 Est GFR ( Amer) > 60 (> 60) 09/22/17 05:12 Est GFR (Non-Af Amer) > 60 (> 60) 09/22/17 05:12 BUN/Creatinine Ratio 10 (6-26) 09/22/17 05:12 Glucose 74 mg/dL (70-105) 09/22/17 05:12 Calculated Osmolality 280 (280-300) 09/22/17 05:12 Calcium 6.7 mg/dL (8.6-10.3) L 09/22/17 05:12 Magnesium 1.1 mg/dL (1.6-2.6) L 09/22/17 05:12 Total Bilirubin 0.5 mg/dL (0.3-1.0) 09/21/17 04:28 AST 25 Units/L (13-39) 09/21/17 04:28 ALT 17 Units/L (7-52) 09/21/17 04:28 Alkaline Phosphatase 50 Units/L (34-104) 09/21/17 04:28 Serum Total Protein 7.9 g/dL (6.4-8.9) 09/21/17 04:28 Albumin 4.8 g/dL (3.5-5.7) 09/21/17 04:28 Globulin 3.1 g/dL (2.4-3.5) 09/21/17 04:28 Albumin/Globulin Ratio 1.5 (1.1-2.2) 09/21/17 04:28 Lipase 128 Units/L (11-82) H 09/21/17 04:28 Urine Color Yellow (Yellow) 09/21/17 04:27 Urine Clarity Cloudy (Clear) A 09/21/17 04:27 Urine pH 6.5 pH Units (5.0-8.0) 09/21/17 04:27 Ur Specific [place] 1.015 (1.010-1.025) 09/21/17 04:27 Urine Protein 30 mg/dL (Neg-Trace) H 09/21/17 04:27 Urine Glucose (UA) Normal mg/dL (Normal) 09/21/17 04:27 Urine Ketones Negative mg/dL (Negative) 09/21/17 04:27 Urine Blood Moderate (Negative) H 09/21/17 04:27 Urine Nitrite Negative (Negative) 09/21/17 04:27 Urine Bilirubin Negative (Negative) 09/21/17 04:27 Urine Urobilinogen Normal mg/dL (Normal) 09/21/17 04:27 Ur Leukocyte Esterase Negative (Negative) 09/21/17 04:27 Urine Microscopic RBC 3-5 per hpf (0-3) H 09/21/17 04:27 Urine Microscopic WBC 5-15 per hpf (0-3) H 09/21/17 04:27 Ur Squamous Epith Cells Many per lpf (None-Few) H 09/21/17 04:27 Urine Bacteria Moderate per hpf (None-Few) H 09/21/17 04:27 Hyaline Casts None Seen per lpf (None-Few) 09/21/17 04:27 Ur Culture Indicated? NO (NO) 09/21/17 04:27 Urine Test Negative (Negative) 09/21/17 04:27 Salicylates < 5.0 mg/dL (15.0-30.0) L 09/21/17 04:28 Urine Opiates Screen Negative ng/mL (Rjtdxr=048) 09/21/17 04:27 Acetaminophen < 1.0 mcg/mL (10-30) L 09/21/17 04:28 Ur Barbiturates Screen Negative ng/mL (Uwvmye=160) 09/21/17 04:27 Ur Phencyclidine Scrn Negative ng/mL (Cutoff=25) 09/21/17 04:27 Ur Amphetamines Screen Negative ng/mL (Kieqcf=8900) 09/21/17 04:27 U Benzodiazepines Scrn Positive ng/mL (Gzqzbp=076) H 09/21/17 04:27 Urine Cocaine Screen Negative ng/mL (Cutoff= 300) 09/21/17 04:27 U Marijuana (THC) Screen Negative ng/mL (Cutoff = 50) 09/21/17 04:27 Ethyl Alcohol 394 mg/dL (0-10) H 09/21/17 04:28 - Impressions Impressions Abdomen/Pelvis CT 09/22/17 03:15 IMPRESSION: No acute findings. D/ / Luis Faulkner MD / Luis Faulkner MD Interpreting Provider: Luis Faulkner MD Consult Discharge Plan - Plan Referrals: [facility] [Outside] (will wait to see where patient goes at discharge)
[2017-09-22] MEDS: Thiamine (B-1) 100 MG, Folic Acid 1 MG, MVI, adult with vitamin K 10 ML in 0.9 % Sodi... IVPB SCH (18:56)
--- NOTE | 2017-09-22 19:26 | Internal Med Progress Note ---
Date of Encounter: 09/22/17 Time of Encounter: 19:24 - Assessment and plan (1) Upper GI bleed Current Visit: Yes Status: Acute Assessment and plan: H&H is stable. Monitor for hematemesis or melena. Does not require any further inpatient workup. (2) Alcohol intoxication Current Visit: Yes Status: Acute Assessment and plan: Result Qualifiers: Complication of substance-induced condition: uncomplicated Qualified Code(s ): F10.920 - Alcohol use, unspecified with intoxication, uncomplicated (3) Suicidal ideation Current Visit: Yes Status: Acute Assessment and plan: Appreciate psychiatry recommendations. Outpatient follow-up will be arranged. (4) DVT prophylaxis Current Visit: Yes Status: Acute Assessment and plan: Ambulate (5) Alcohol abuse Current Visit: Yes Status: Acute Assessment and plan: Social service consult. Will likely need inpatient detox. Continue with alcohol withdrawal protocol. Add oral Librium taper. She is at high risk for morbidity mortality and complications due to IV benzodiazepines. (6) Nausea & vomiting Current Visit: Yes Status: Acute Assessment and plan: Zofran. Qualifiers: Vomiting type: unspecified Vomiting Intractability: non-intractable Qualified Code(s): R11.2 - Nausea with vomiting, unspecified (7) Tobacco abuse Current Visit: Yes Status: Acute Assessment and plan: I advised smoking cessation. (8) Hypomagnesemia Current Visit: Yes Status: Acute Assessment and plan: Replete with IV magnesium. (9) Hypokalemia Current Visit: Yes Status: Acute Assessment and plan: Replete with oral potassium chloride. - Subjective Interval history: Patient reports severe nausea associated with abdominal pain constant since yesterday, improves with IV antiemetics. Reports feeling depressed and having some withdrawal symptoms which improve with IV medication. - Constitutional Vitals: Temp Pulse Resp BP Pulse Ox 97.9 F 101 17 127/86 98 09/22/17 16:14 09/22/17 16:14 09/22/17 16:14 09/22/17 16:14 09/22/17 16:14 General appearance: Present: A&O X 3, no acute distress - Eye Eye exam: Present: PERRL, conjuntiva pink, sclera anicteric Pupils: Present: PERRL - Respiratory Respiratory exam: Present: CTAB. Absent: accessory muscle use, rales, rhonchi, wheezes - Cardiovascular Cardiovascular exam: Present: RRR, +S1, +S2. Absent: diastolic murmur, gallop, rubs, systolic murmur - GI/Abdominal GI/Abdominal exam: Present: normal bowel sounds, soft, no peritoneal signs. Absent: distended, tenderness - Skin Skin exam: Present: dry, intact Internal Medicine: Result - Labs CBC & Chem 7: 09/22/17 05:12 09/22/17 05:12 Labs: Short CBC 09/21/17 09/22/17 Range/Units 22:11 05:12 WBC 7.7 (4.3-11.1) K/mcL Hgb 9.8 L 9.7 L (11.5-15.4) g/dL Hct 29.0 L 28.0 L (35.3-44.9) % Plt Count 130 L (140-400) K/mcL Neutrophils # 5.4 (1.6-8.9) K/mcL BMP 09/22/17 05:12 Sodium 137 Potassium 3.1 L Chloride 104 Carbon Dioxide 25 BUN 6 Creatinine 0.62 Glucose 74 Calcium 6.7 L - Impressions Impressions Abdomen/Pelvis CT 09/22/17 03:15 IMPRESSION: No acute findings. D/ / Luis Faulkner MD / Luis Faulkner MD Interpreting Provider: Luis Faulkner MD Consult Discharge Plan - Plan Referrals: [facility] [Outside] (will wait to see where patient goes at discharge)
[2017-09-23] MEDS: Ondansetron 4 MG/2 ML VIAL IVP PRN ×3 (00:06→22:57)
[2017-09-23] MEDS: *HR* LORazepam 2 MG/ML VIAL IVP PRN ×11 (00:06→20:44)
[2017-09-23] MEDS ORDERED: Ketorolac 30 MG/ML VIAL IVP ONE (00:19)
[2017-09-23] MEDS: *HR* Morphine 2 MG/ML SYRINGE IVP PRN ×5 (01:46→22:47)
[2017-09-23] MEDS: Acetaminophen 325 MG TABLET PO PRN (04:49)
[2017-09-23] MEDS: Pantoprazole 40 MG VIAL IVP SCH (05:36)
[2017-09-23] MEDS: Nicotine 21 MG PATCH.TD24 TD SCH (05:40)
[2017-09-23 06:55] LABS: BUN/Creatinine Ratio 10 (6-26); Blood Urea Nitrogen 8 mg/dL (6-20); Calcium 7.5 mg/dL (8.6-10.3); Carbon Dioxide 21 mEq/L (23-29); Chloride 108 mEq/L (98-107); Glucose 111 mg/dL (70-105); Osmolality,Calculated 281 (280-300); Potassium 4.1 mEq/L (3.5-5.1); Sodium 136 mEq/L (136-145); eGFR For African Americans > 60 (> 60); eGFR For Non-African Americans > 60 (> 60)
--- NOTE | 2017-09-23 10:08 | Internal Med Progress Note ---
<Álvaro Moore - Last Filed: 09/23/17 17:06> Date of Encounter: 09/23/17 Time of Encounter: 09:30 - Assessment and plan (1) Alcoholic gastritis Current Visit: Yes Status: Acute Assessment and plan: The patient continues to have the gastric abdominal pain, nausea, vomiting. Continue with zofran, phenergan. Continue CIWA including IV fluids and vitamin B1. Plan to discharge her tomorrow to discharge condition of patient going to rehab facility after discharge. Qualifiers: Qualified Code(s): K29.20 - Alcoholic gastritis without bleeding (2) Alcohol abuse Current Visit: Yes Status: Acute Assessment and plan: Patient is agreeable to following up on rehabilitation facility after discharge. media services specialist on board and providing patient with information. Discharge tomorrow. (3) Nausea & vomiting Current Visit: Yes Status: Acute Assessment and plan: Continue with Zofran and Phenergan. Qualifiers: Vomiting type: unspecified Vomiting Intractability: non-intractable Qualified Code(s): R11.2 - Nausea with vomiting, unspecified (4) Upper GI bleed Current Visit: Yes Status: Acute Assessment and plan: H&H is stable. No acute signs of bleeding. (5) Alcohol intoxication Current Visit: Yes Status: Acute Assessment and plan: Continue with CIWA protocol. Qualifiers: Complication of substance-induced condition: uncomplicated Qualified Code(s ): F10.920 - Alcohol use, unspecified with intoxication, uncomplicated (6) Suicidal ideation Current Visit: Yes Status: Acute Assessment and plan: Psychiatry consult indicates patient no longer has suicidal ideation, no need for inpatient behavioral health admission. However, patient is still anxious and depressed. Discharge condition of going into rehabilitation must be met before discharge (7) Tobacco abuse Current Visit: Yes Status: Acute Assessment and plan: Patient is educated on importance of tobacco cessation. - Time Spent With Patient 25 - 35 minutes - Subjective Interval history: Ms. Dewitt is a 27 year old female with PMHx alcohol abuse presented to hospital for nausea and vomiting. She was on alcohol rehab 2 months ago and has been since up until 2 weeks ago when she started drinking 1 pint of whiskey daily. In ED, blood alcohol level was 394. She received IV ativan with improvement of symptoms. CIWA protocol was started. She was admitted for suicidal ideation and alcohol intoxification. Psych was consulted and determined she was no longer suicidal and there is no need to admit her to inpatient behavioral health. She is recommended to go into rehab. Patient is greatly improved today, but still reports nausea, but not vomiting. She denies fever, chills, diarrhea, constipation. Continues to have abdominal pain. She is agreeable to go to rehab. - Constitutional Vitals: Temp Pulse Resp BP Pulse Ox 98.0 F 88 15 120/83 100 09/23/17 08:03 09/23/17 08:03 09/23/17 08:03 09/23/17 08:03 09/23/17 08:03 General appearance: Present: A&O X 3, no acute distress - Head Head exam: Present: atraumatic, normocephalic - Eye Eye exam: Present: normal appearance - ENT ENT exam: Present: mucous membranes moist - Neck Neck exam general surgery: Present: full ROM, supple, trachea midline - Respiratory Respiratory exam: Present: CTAB - Cardiovascular Cardiovascular exam: Present: RRR, +S1, +S2. Absent: systolic murmur - GI/Abdominal GI/Abdominal exam: Present: normal bowel sounds, soft, no peritoneal signs. Absent: guarding, hepatomegaly Additional comments: diffuse epigastric tenderness. - Extremities Exam Extremities exam: Present: full ROM, warm, radial pulses palpable and symmetrical - Neurological Exam Neurological exam: Present: altered, CN II-XII intact, oriented X3, no focal deficits. Absent: facial droop, speech deficit - Skin Skin exam: Present: intact, warm Internal Medicine: Result - Labs CBC & Chem 7: 09/23/17 12:12 09/23/17 06:07 Labs: BMP 09/23/17 06:07 Sodium 136 Potassium 4.1 Chloride 108 H Carbon Dioxide 21 L BUN 8 Creatinine 0.78 Glucose 111 H Calcium 7.5 L Consult Discharge Plan - Plan Referrals: [facility] [Outside] (will wait to see where patient goes at discharge) <Ramin Ewing - Last Filed: 09/23/17 22:59> Date of Encounter: 09/23/17 - Assessment and plan (1) Upper GI bleed Current Visit: Yes Status: Acute (2) Alcohol intoxication Current Visit: Yes Status: Acute Qualifiers: Complication of substance-induced condition: uncomplicated Qualified Code(s ): F10.920 - Alcohol use, unspecified with intoxication, uncomplicated (3) Suicidal ideation Current Visit: Yes Status: Acute (4) DVT prophylaxis Current Visit: Yes Status: Acute (5) Alcohol abuse Current Visit: Yes Status: Acute (6) Nausea & vomiting Current Visit: Yes Status: Acute Qualifiers: Vomiting type: unspecified Vomiting Intractability: non-intractable Qualified Code(s): R11.2 - Nausea with vomiting, unspecified (7) Tobacco abuse Current Visit: Yes Status: Acute (8) Hypomagnesemia Current Visit: Yes Status: Acute (9) Hypokalemia Current Visit: Yes Status: Acute (10) Acute blood loss anemia Current Visit: Yes Status: Acute Assessment and plan: Monitor H&H daily. Hemoglobin came up to 10. Follow-up outpatient. Recommend iron rich diet. - Constitutional Vitals: Temp Pulse Resp BP Pulse Ox 98.4 F 100 16 127/83 100 09/23/17 20:59 09/23/17 20:59 09/23/17 20:59 09/23/17 20:59 09/23/17 20:59 Internal Medicine: Result - Labs CBC & Chem 7: 09/23/17 12:12 09/23/17 06:07 Labs: Short CBC 09/23/17 Range/Units 12:12 WBC 5.0 (4.3-11.1) K/mcL Hgb 10.2 L (11.5-15.4) g/dL Hct 29.8 L (35.3-44.9) % Plt Count 123 L (140-400) K/mcL Neutrophils # 2.4 (1.6-8.9) K/mcL BMP 09/23/17 06:07 Sodium 136 Potassium 4.1 Chloride 108 H Carbon Dioxide 21 L BUN 8 Creatinine 0.78 Glucose 111 H Calcium 7.5 L - Attending Attestation I conducted a face to face diagnostic evaluation of this patient and my medical decision-making was reviewed with the Resident Physician. I agree with the documented findings, disposition and treatment plan as described except to the extent set forth below: Patient is at high risk for relapse is discharged to home. She still has withdrawal symptoms. She has symptoms of acute alcoholic gastritis for which we will provide oral PPI , antiemetics and supportive care. Social work consult for residential detox placement. Ramin Ewing MD
[2017-09-23 12:37] LABS: Basophils % 0.2 %; Eosinophils # 0.3 K/mcL (0.0-0.6); Hematocrit 29.8 % (35.3-44.9); Hemoglobin 10.2 g/dL (11.5-15.4); Immature Granulocytes % 0.4 % (0-4); Lymphocytes # 1.8 K/mcL (0.6-4.6); Lymphocytes % 35.1 %; Mean Corpuscular HGB Conc 34.2 g/dL (31.6-35.5); Mean Corpuscular Hemoglobin 30.3 pg (28.0-33.3); Mean Corpuscular Volume 88.4 fL (83.0-100.0); Mean Platelet Volume 9.8 fL (9.4-12.4); Monocytes # 0.6 K/mcL (0.0-1.3); Monocytes % 11.4 %; Neutrophils # 2.4 K/mcL (1.6-8.9); Platelet Count 123 K/mcL (140-400); Red Blood Count 3.37 M/mcL (3.82-4.97); Red Cell Distribution Width 11.8 % (11.5-14.5); Segmented Neutrophils % 47.9 %
--- NOTE | 2017-09-23 13:02 | Discharge Summary ---
Date of Encounter: 09/23/17 Time of Encounter: 09:00 - Discharge Diagnosis (1) Alcohol abuse Priority: Primary Status: Acute (2) Nausea & vomiting Priority: Primary Status: Acute Qualifiers: Vomiting type: unspecified Vomiting Intractability: non-intractable Qualified Code(s): R11.2 - Nausea with vomiting, unspecified (3) Alcohol intoxication Priority: Primary Status: Acute Qualifiers: Complication of substance-induced condition: uncomplicated Qualified Code(s ): F10.920 - Alcohol use, unspecified with intoxication, uncomplicated (4) Suicidal ideation Priority: Secondary Status: Acute (5) Tobacco abuse Priority: Secondary Status: Acute - Discharge Medications Home Medications: chlordiazePOXIDE HCl [Chlordiazepoxide HCl] 10 mg PO TID PRN 09/21/17 [History] Allergies/Adverse Reactions: 3 Allergy/AdvReac Type Severity Reaction Status Date / Time No Known Allergies Allergy Verified 09/21/17 04:45 Procedures/tests Complete & Pending: Procedures Performed prior 72 hours Category Date Time Status CT abd pelvis w iv no oral [CT] Stat Cat Scan 09/22/17 03:15 Completed Date of admission: 09/21/17 09:26 Primary care physician: PCP NONE Consults: Psychiatry consulted and determined patient does not have suicidal ideation and does not require inpatient hospitalization at this time. She is recommended to go directly to a residential rehab. Discharging clinician: Álvaro Moore Anticipated date of discharge: 09/23/17 - Patient Status Disposition: Home, Self-Care Condition: Good Functional capacity at discharge: independent ambulation Overall status at discharge: patient is back to baseline - Discharge Instructions Follow Up With: [facility] [Outside] (will wait to see where patient goes at discharge) Hospital course: Ms. Dewitt is a 27 year old female with PMHx alcohol abuse presented to hospital for nausea and vomiting. She was on alcohol rehab 2 months ago and has been since up until 2 weeks ago when she started drinking 1 pint of whiskey daily. In ED, blood alcohol level was 394. She received IV ativan with improvement of symptoms. CIWA protocol was started. She was admitted for suicidal ideation and alcohol intoxification. Psych was consulted and determined she was no longer suicidal and there is no need to admit her to inpatient behavioral health. She is recommended to go into rehab. Patient is greatly improved today, but still reports nausea, but not vomiting. She denies fever, chills, diarrhea, constipation. Continues to have abdominal pain. She is agreeable to go to rehab. - Time Spent with Patient Total time spent providing and/or coordinating discharge services: - Constitutional Vitals: Temp Pulse Resp BP Pulse Ox 97.8 F 81 16 121/76 98 09/23/17 12:00 09/23/17 12:00 09/23/17 12:00 09/23/17 12:00 09/23/17 12:00 General appearance: Present: A&O X 3, no acute distress - Head Head exam: Present: atraumatic, normocephalic - Eye Eye exam: Present: normal appearance - ENT ENT exam: Present: mucous membranes moist - Neck Neck exam general surgery: Present: full ROM, supple, trachea midline. Absent: lymphadenopathy - Respiratory Respiratory exam: Present: CTAB - Cardiovascular Cardiovascular exam: Present: RRR, +S1, +S2. Absent: systolic murmur - GI/Abdominal GI/Abdominal exam: Present: normal bowel sounds, soft, no peritoneal signs. Absent: guarding, hepatomegaly, mass, splenomegaly - Extremities Exam Extremities exam: Present: full ROM, warm, radial pulses palpable and symmetrical. Absent: pedal edema - Neurological Exam Neurological exam: Present: alert, CN II-XII intact, oriented X3, no focal deficits, strengths equal and symetr throughout. Absent: pronater drift, facial droop, speech deficit - Psychiatric Psychiatric exam: Present: anxious. Absent: suicidal ideation - Skin Skin exam: Present: intact, normal color, warm
[2017-09-23] MEDS: *HR* Promethazine 25 MG/ML VIAL IVP PRN (17:15)
[2017-09-23] MEDS: Thiamine (B-1) 100 MG, Folic Acid 1 MG, MVI, adult with vitamin K 10 ML in 0.9 % Sodi... IVPB SCH (17:37)
[2017-09-24] MEDS: *HR* Promethazine 25 MG/ML VIAL IVP PRN (00:05)
[2017-09-24] MEDS: *HR* LORazepam 2 MG/ML VIAL IVP PRN ×3 (00:05→09:52)
[2017-09-24] MEDS: *HR* Morphine 2 MG/ML SYRINGE IVP PRN (03:58)
[2017-09-24 07:25] VITALS: BP 136/93
[2017-09-24 07:41] LABS: BUN/Creatinine Ratio 22 (6-26); Blood Urea Nitrogen 15 mg/dL (6-20); Calcium 8.7 mg/dL (8.6-10.3); Carbon Dioxide 20 mEq/L (23-29); Chloride 106 mEq/L (98-107); Glucose 138 mg/dL (70-105); Magnesium 1.7 mg/dL (1.6-2.6); Osmolality,Calculated 285 (280-300); Potassium 4.5 mEq/L (3.5-5.1); Sodium 136 mEq/L (136-145); eGFR For African Americans > 60 (> 60); eGFR For Non-African Americans > 60 (> 60)
[2017-09-24] MEDS: Nicotine 21 MG PATCH.TD24 TD SCH (08:32)
--- NOTE | 2017-09-24 13:39 | Internal Med Progress Note ---
<Álvaro Moore - Last Filed: 09/24/17 13:37> Date of Encounter: 09/24/17 Time of Encounter: 10:00 - Assessment and plan (1) Alcohol intoxication Status: Acute Assessment and plan: Resolved. The patient shows no sign of alcohol intoxication anymore. She denies nausea, vomiting. Okay to discontinue CIWA protocol. shipping services sales representative unable to find rehabilitation center for patient. Multiple rehabilitation centers contacted but unable to find placement for her. The patient denies any suicidal ideations, reports improvement of anxiety and depression. She is agreeable to be discharged to go home which she has good family support. Please refer to discharge summary from yesterday for discharge instructions. Qualifiers: Complication of substance-induced condition: uncomplicated Qualified Code(s ): F10.920 - Alcohol use, unspecified with intoxication, uncomplicated (2) Acute blood loss anemia Status: Acute Assessment and plan: Improved. H&H is stable and there are no signs of acute bleeding. (3) Alcoholic gastritis Status: Acute Assessment and plan: Improved. Patient continues to have abdominal pain but reports improved from yesterday. She is advised to discontinue alcohol consumption. Patient is unable to be discharged to rehabilitation due to inability to get placement, but she has good support at home and is agreeable to go home and follow with outpatient PCP and counseling. Qualifiers: Qualified Code(s): K29.20 - Alcoholic gastritis without bleeding (4) Alcohol abuse Status: Acute Assessment and plan: Patient is to follow-up weight counseling and outpatient rehabilitation. (5) Nausea & vomiting Status: Acute Assessment and plan: Resolved Qualifiers: Vomiting type: unspecified Vomiting Intractability: non-intractable Qualified Code(s): R11.2 - Nausea with vomiting, unspecified (6) Suicidal ideation Status: Acute Assessment and plan: Resolved (7) Tobacco abuse Status: Acute Assessment and plan: Patient is educated on the importance of tobacco cessation. Follow-up on outpatient (8) Anxiety Status: Acute Assessment and plan: Patient reports she requires anxiety medication. I am discharging her with Levaquin on 10 mg 3 times a day for 5 days. She is instructed to follow-up with her counselor and PCP. - Subjective Interval history: Ms. Dewitt is a 27 year old female with PMHx alcohol abuse presented to hospital for nausea and vomiting. She was on alcohol rehab 2 months ago and has been since up until 2 weeks ago when she started drinking 1 pint of whiskey daily. In ED, blood alcohol level was 394. She received IV ativan with improvement of symptoms. CIWA protocol was started. She was admitted for suicidal ideation and alcohol intoxification. Psych was consulted and determined she was no longer suicidal and there is no need to admit her to inpatient behavioral health. She is recommended to go into rehab. Patient is greatly improved today, but still reports nausea, but not vomiting. She denies fever, chills, diarrhea, constipation. Continues to have abdominal pain, but admits to improvement. - Constitutional Vitals: Temp Pulse Resp BP Pulse Ox 98.2 F 94 16 136/93 98 09/24/17 07:20 09/24/17 07:20 09/24/17 07:20 09/24/17 07:20 09/24/17 07:20 General appearance: Present: A&O X 3, no acute distress - Head Head exam: Present: atraumatic, normocephalic - Eye Eye exam: Present: normal appearance - ENT ENT exam: Present: mucous membranes moist - Neck Neck exam general surgery: Present: full ROM, supple, trachea midline - Respiratory Respiratory exam: Present: CTAB. Absent: rales, rhonchi, wheezes - Cardiovascular Cardiovascular exam: Present: RRR, +S1, +S2 - GI/Abdominal GI/Abdominal exam: Present: normal bowel sounds, soft, tenderness, no peritoneal signs. Absent: bruit, hepatomegaly, splenomegaly - Extremities Exam Extremities exam: Present: full ROM, warm, radial pulses palpable and symmetrical - Neurological Exam Neurological exam: Present: alert, CN II-XII intact, oriented X3. Absent: facial droop, speech deficit - Psychiatric Psychiatric exam: Present: normal affect, normal mood. Absent: suicidal ideation - Skin Skin exam: Present: intact, normal color, warm Internal Medicine: Result - Labs CBC & Chem 7: 09/23/17 12:12 09/24/17 06:15 Labs: BMP 09/24/17 06:15 Sodium 136 Potassium 4.5 Chloride 106 Carbon Dioxide 20 L BUN 15 Creatinine 0.67 Glucose 138 H Calcium 8.7 Consult Discharge Plan - Plan Instructions: Alcohol Intoxication (GEN), Abuse of Alcohol (GEN), Acute Nausea and Vomiting (DC) Referrals: [facility] [Outside] (will wait to see where patient goes at discharge) Prescriptions: Chlordiazepoxide [Librium] 10 mg PO TID #15 capsule <Bart Eldridge - Last Filed: 09/24/17 16:40> Date of Encounter: 09/24/17 - Constitutional Vitals: Temp Pulse Resp BP Pulse Ox 98.2 F 94 16 136/93 98 09/24/17 07:20 09/24/17 07:20 09/24/17 07:20 09/24/17 07:20 09/24/17 07:20 Internal Medicine: Result - Labs CBC & Chem 7: 09/23/17 12:12 09/24/17 06:15 Labs: BMP 09/24/17 06:15 Sodium 136 Potassium 4.5 Chloride 106 Carbon Dioxide 20 L BUN 15 Creatinine 0.67 Glucose 138 H Calcium 8.7 - Attending Attestation I personally interviewed and examined this pt. I agree with the findings, assessment and plan of Dr. Moore. My input is reflected in his discharge summary. I did discuss at length the importance of alcohol cessation with this patient. I recommended she attend Alcoholics Anonymous meetings and seeks to help of an addictionologist. Patient states she is motivated to do so. Otherwise patient was stable for discharge. Plan as outlined.
== END 2017-09-24 14:26 | disposition home or self-care (01) | DRG 241 ==
LOC: 2ANU 04:15 → EMEROO 04:15 → SUATTDRO 05:41 → 2ANU 06:09
PROVIDERS: ADMIT Pediatrics; ATTEND Internal Medicine

== ENCOUNTER 2019-12-21 01:10 | Observation (INO) ==
[2019-12-21] MEDS ORDERED: Naloxone 0.4 MG/ML INJ IVP PRN (04:52)
[2019-12-21] MEDS ORDERED: *HR* LORazepam 2 MG/ML VIAL IVP PRN ×2 (04:55)
[2019-12-21] MEDS: hydrOXYzine pamoate 25 MG CAPSULE PO PRN ×4 (05:43→23:41)
[2019-12-21] MEDS: Ondansetron ODT 4 MG TAB.RAPDIS SL PRN ×4 (05:43→22:22)
[2019-12-21] MEDS: Thiamine (B-1) 100 MG TABLET PO SCH (07:58)
[2019-12-21] MEDS: Folic Acid 1 MG TABLET PO SCH (07:58)
[2019-12-21] MEDS ORDERED: *HR* LORazepam 2 MG/ML VIAL IVP ONE (08:24)
[2019-12-21 08:34] LABS: Basophils % 0.3 %; Eosinophils # 0.2 K/mcL (0.0-0.6); Eosinophils % 3.1 %; Hematocrit 34.6 % (35.3-44.9); Hemoglobin 11.4 g/dL (11.5-15.4); Immature Granulocytes % 0.2 % (0-4); Lymphocytes # 2.3 K/mcL (0.6-4.6); Lymphocytes % 40.5 %; Mean Corpuscular HGB Conc 32.9 g/dL (31.6-35.5); Mean Corpuscular Hemoglobin 30.2 pg (28.0-33.3); Mean Corpuscular Volume 91.5 fL (83.0-100.0); Monocytes # 0.5 K/mcL (0.0-1.3); Monocytes % 9.1 %; Neutrophils # 2.7 K/mcL (1.6-8.9); Platelet Count 133 K/mcL (140-400); Red Blood Count 3.78 M/mcL (3.82-4.97); Red Cell Distribution Width 12.7 % (11.5-14.5); Segmented Neutrophils % 46.8 %; White Blood Count 5.7 K/mcL (4.3-11.1)
[2019-12-21 08:53] LABS: BUN/Creatinine Ratio 22 (6-26); Blood Urea Nitrogen 13 mg/dL (6-20); Calcium 8.5 mg/dL (8.6-10.3); Carbon Dioxide 24 mEq/L (23-29); Chloride 103 mEq/L (98-107); Glucose 79 mg/dL (70-105); Osmolality,Calculated 285 (280-300); Potassium 3.5 mEq/L (3.5-5.1); Sodium 138 mEq/L (136-145); eGFR For African Americans > 60 (> 60); eGFR For Non-African Americans > 60 (> 60)
[2019-12-21] MEDS ORDERED: Famotidine 20 MG TABLET PO SCH (09:00)
[2019-12-21] MEDS: Acetaminophen 325 MG TABLET PO PRN ×2 (09:32→19:59)
[2019-12-21] MEDS: traZODone 50 MG TABLET PO PRN (15:28)
[2019-12-21] MEDS ORDERED: GI Cocktail 40 ML EACH PO ONE (15:30)
[2019-12-21] MEDS: Nicotine 21 MG PATCH.TD24 TD SCH (23:42)
[2019-12-22 01:30] LABS: Basophils % 0.2 %; Eosinophils # 0.2 K/mcL (0.0-0.6); Eosinophils % 3.2 %; Hematocrit 36.8 % (35.3-44.9); Hemoglobin 12.5 g/dL (11.5-15.4); Immature Granulocytes % 0.2 % (0-4); Lymphocytes # 1.2 K/mcL (0.6-4.6); Lymphocytes % 20.3 %; Mean Corpuscular Hemoglobin 30.4 pg (28.0-33.3); Mean Corpuscular Volume 89.5 fL (83.0-100.0); Monocytes # 0.5 K/mcL (0.0-1.3); Neutrophils # 3.8 K/mcL (1.6-8.9); Platelet Count 117 K/mcL (140-400); Red Blood Count 4.11 M/mcL (3.82-4.97); Red Cell Distribution Width 12.1 % (11.5-14.5); Segmented Neutrophils % 67.1 %; White Blood Count 5.7 K/mcL (4.3-11.1)
[2019-12-22 01:47] LABS: BUN/Creatinine Ratio 14 (6-26); Blood Urea Nitrogen 10 mg/dL (6-20); Carbon Dioxide 27 mEq/L (23-29); Chloride 97 mEq/L (98-107); Glucose 113 mg/dL (70-105); Osmolality,Calculated 276 (280-300); Potassium 3.5 mEq/L (3.5-5.1); Sodium 133 mEq/L (136-145); eGFR For African Americans > 60 (> 60); eGFR For Non-African Americans > 60 (> 60)
[2019-12-22] MEDS: *HR* LORazepam 2 MG/ML VIAL IVP PRN ×3 (03:01→22:47)
[2019-12-22] MEDS: Folic Acid 1 MG TABLET PO SCH (08:06)
[2019-12-22] MEDS: Acetaminophen 325 MG TABLET PO PRN ×3 (08:06→22:45)
[2019-12-22] MEDS: Thiamine (B-1) 100 MG TABLET PO SCH (08:06)
[2019-12-22] MEDS: Nicotine 21 MG PATCH.TD24 TD SCH (08:06)
[2019-12-22] MEDS: Ondansetron ODT 4 MG TAB.RAPDIS SL PRN ×3 (08:06→20:03)
[2019-12-22] MEDS: hydrOXYzine pamoate 25 MG CAPSULE PO PRN ×2 (08:06→20:03)
[2019-12-22 09:00] LABS: BUN/Creatinine Ratio 16 (6-26); Blood Urea Nitrogen 11 mg/dL (6-20); Calcium 9.2 mg/dL (8.6-10.3); Carbon Dioxide 27 mEq/L (23-29); Chloride 100 mEq/L (98-107); Glucose 93 mg/dL (70-105); Osmolality,Calculated 281 (280-300); Potassium 3.8 mEq/L (3.5-5.1); Sodium 136 mEq/L (136-145); eGFR For African Americans > 60 (> 60); eGFR For Non-African Americans > 60 (> 60)
[2019-12-22] MEDS: traZODone 50 MG TABLET PO PRN (21:07)
[2019-12-23 01:11] LABS: Hematocrit 38.5 % (35.3-44.9); Hemoglobin 13.1 g/dL (11.5-15.4); Mean Corpuscular Hemoglobin 30.7 pg (28.0-33.3); Mean Corpuscular Volume 90.2 fL (83.0-100.0); Mean Platelet Volume 9.5 fL (9.4-12.4); Platelet Count 106 K/mcL (140-400); Red Blood Count 4.27 M/mcL (3.82-4.97); Red Cell Distribution Width 12.2 % (11.5-14.5); White Blood Count 5.3 K/mcL (4.3-11.1)
[2019-12-23 01:28] LABS: Albumin 4.5 g/dL (3.5-5.7); Albumin/Globulin Ratio 1.7 (1.1-2.2); Bilirubin,Direct 0.1 mg/dL (0.0-0.2); Bilirubin,Indirect 0.5 mg/dL (0.0-1.0); Bilirubin,Total 0.6 mg/dL (0.3-1.0); Globulin 2.6 g/dL (2.4-3.5); Magnesium 1.9 mg/dL (1.6-2.6); Phosphorous 2.9 mg/dL (2.7-4.5); Total Protein 7.1 g/dL (6.4-8.9)
[2019-12-23 01:31] LABS: BUN/Creatinine Ratio 24 (6-26); Blood Urea Nitrogen 15 mg/dL (6-20); Calcium 9.3 mg/dL (8.6-10.3); Carbon Dioxide 23 mEq/L (23-29); Chloride 101 mEq/L (98-107); Glucose 131 mg/dL (70-105); Osmolality,Calculated 281 (280-300); Potassium 3.9 mEq/L (3.5-5.1); Sodium 134 mEq/L (136-145); eGFR For African Americans > 60 (> 60); eGFR For Non-African Americans > 60 (> 60)
[2019-12-23] MEDS: Acetaminophen 325 MG TABLET PO PRN ×2 (05:10→11:40)
[2019-12-23] MEDS: *HR* LORazepam 2 MG/ML VIAL IVP PRN ×2 (05:12→11:40)
[2019-12-23] MEDS: Nicotine 21 MG PATCH.TD24 TD SCH (09:22)
[2019-12-23] MEDS: Folic Acid 1 MG TABLET PO SCH (09:22)
[2019-12-23] MEDS: hydrOXYzine pamoate 25 MG CAPSULE PO PRN ×2 (09:22→15:30)
[2019-12-23] MEDS: Thiamine (B-1) 100 MG TABLET PO SCH (09:22)
[2019-12-23] MEDS: Ondansetron ODT 4 MG TAB.RAPDIS SL PRN ×2 (09:23→15:30)
[2019-12-23 10:26] VITALS: BP 108/74
== END 2019-12-23 15:31 | disposition home or self-care (01) ==
LOC: 3BNU → SUATTDRO 02:52
PROVIDERS: ADMIT Internal Medicine; ATTEND Student in an Organized Health Care Education/Training Program